=== PATIENT | female | born 2000 | race Caucasian/White ===

== ENCOUNTER 2021-02-08 02:55 | Emergency (ER) | payer MEDICAID ==
[2021-02-08] MEDS ORDERED: Doxycycline 100 MG Tab PO ONE (02:56)
--- NOTE | 2021-02-08 03:47 | EDM.PDOC ---
ED HPI GENERAL MEDICAL PROBLEM - General Stated Complaint: RASH Time Seen by Provider: 02/08/21 03:05 Source of Information: Reports: Patient History Limitations: Reports: No Limitations - History of Present Illness INITIAL COMMENTS - FREE TEXT/NARRATIVE: 20-year-old lady came to the emergency department because of a rash. She states that she noticed the rash on her face and then on her legs. She is not sure how long she has had the rash. She has not had a rash like this before. There is no pruritus. She denies fever, chills, nausea, vomiting, upper respiratory symptoms including cough, sputum production, headache. She states that she is prone to urinary tract infections but does not have any dysuria at this time. Further questioning shows that she is extremely anxious and has been asked to leave the place where she was staying recently. [place] but is in town due to having to attend court. Does have a history of anxiety and has been treated in the past but does not take the prescribed medications. She denies any current drug use. She does state that she has nowhere to go and nowhere to stay. The patient admitted to daily methamphetamine abuse. - Related Data Allergies Allergy/AdvReac Type Severity Reaction Status Date / Time No Known Allergies Allergy Verified 02/08/21 03:29 ED ROS GENERAL - Review of Systems Review Of Systems: See Below Constitutional: Reports: No Symptoms HEENT: Reports: No Symptoms Respiratory: Reports: No Symptoms Cardiovascular: Reports: No Symptoms Endocrine: Reports: No Symptoms GI/Abdominal: Reports: No Symptoms : Reports: No Symptoms Musculoskeletal: Reports: No Symptoms Skin: Reports: Rash Neurological: Reports: No Symptoms Psychiatric: Reports: Anxiety Hematologic/Lymphatic: Reports: No Symptoms Immunologic: Reports: No Symptoms ED EXAM, GENERAL - Physical Exam Exam: See Below Exam Limited By: No Limitations General Appearance: Anxious Eye Exam: Bilateral Eye: EOMI, PERRL, Other (Left esotropia) Nose: Normal Inspection Throat/Mouth: Normal Inspection Head: Atraumatic, Normocephalic Neck: Normal Inspection. No: Lymphadenopathy (R), Lymphadenopathy (L) Respiratory/Chest: No Respiratory Distress, Lungs Clear, Normal Breath Sounds Cardiovascular: Normal Peripheral Pulses, Regular Rate, Rhythm, No Edema, No Murmur Peripheral Pulses: 2+: Radial (L), Radial (R), Dorsalis Pedis (L), Dorsalis Pedis (R) GI/Abdominal: Normal Bowel Sounds, Soft, Non-Tender Back Exam: Normal Inspection. No: CVA Tenderness (R), CVA Tenderness (L) Extremities: Normal Inspection, No Pedal Edema Neurological: Alert, CN II-XII Intact Psychiatric: Anxious Skin Exam: Other (Honey crusted lesions on the face and legs, likely impetigo, no active discharge or bleeding) Course - Vital Signs Text/Narrative:: Patient denied any drug allergies. Patient given doxycycline 100 mg twice daily for 7 days and Vistaril 25 mg as needed for anxiety and pruritus Last Recorded V/S: Last Vital Signs Temp 36.7 C 02/08/21 03:00 Pulse 107 H 02/08/21 03:00 Resp 22 H 02/08/21 03:00 BP 117/58 L 02/08/21 03:00 Pulse Ox 98 02/08/21 03:00 Departure - Departure Time of Disposition: 03:53 Disposition: Home, Self-Care 01 Condition: Good Clinical Impression: Methamphetamine abuse - Discharge Information *PRESCRIPTION DRUG MONITORING PROGRAM REVIEWED*: Not Applicable *COPY OF PRESCRIPTION DRUG MONITORING REPORT IN PATIENT RY: Not Applicable Instructions: Rash, Adult, Methamphetamines Use Disorder, Impetigo, Adult Referrals: PCP,None [Primary Care Provider] - Additional Instructions: Ensure that you take all of the doxycycline as directed. 1 pill twice a day until completed. Use the Vistaril as needed for anxiety or pruritus up to 1 pill twice a day. These follow-up with home health care social worker and/or primary care physician. Sepsis Event Note (ED) - Evaluation Sepsis Screening Result: No Definite Risk - Focused Exam Vital Signs: Vital Signs Temp Pulse Resp BP Pulse Ox 02/08/21 03:00 36.7 C 107 H 22 H 117/58 L 98
== END 2021-02-08 04:00 | disposition home or self-care (01) ==
LOC: FB.ED 02:55
DX: F15.10 Other stimulant abuse, uncomplicated (principal); R21 Rash and other nonspecific skin eruption
CPT/HCPCS: 99282; A9270